=== PATIENT | female | born 1990 | race Caucasian/White ===

== ENCOUNTER 2016-05-25 14:25 | Emergency (ER) | payer BC ==
[2016-05-25 14:40] VITALS: BP 115/72
--- NOTE | 2016-05-25 15:16 | UC ---
Respiratory Complaint HPI - HPI Summary HPI Summary: The patient comes in today for: 1. Upper respiratory symptoms (Nasal congestion, rhinitis, sore throat, cough): Onset: 4 days ago. Palliative/Provocative: Nothing makes her symptoms better or worse except Advil Quality: Pressure Region: Frontal and maxillary sinuses. Severity: 5/10 this AM. Time: Constant unless taking Advil Associated symptoms: Rhinitis: Yellow. Upper tooth pain: None. Cough production: None. Temperature: None above 100.4 Previous treatment: cough syrup or Dayquil. * - History of Current Complaint Chief Complaint: UCRespiratory Stated Complaint: FEVER Time Seen by Provider: 05/25/16 15:11 Hx Obtained From: Patient Hx Last Menstrual Period: 05/18/16 ?: No - Allergies/Home Medications Allergies/Adverse Reactions: Allergies Allergy/AdvReac Type Severity Reaction Status Date / Time Penicillins Allergy Itching Verified 05/25/16 14:40 Home Medications: Home Medications Dextromethorphan-Phenylephrine [Day Time Multi-Symptom Co] 1 cap PO PRN [History] PMH/Surg Hx/FS Hx/Imm Hx Previously Healthy: Yes Endocrine History Of: Denies: Diabetes, Thyroid Disease, Hyperthyroidism, Hypothyroidism, Dyslipidemia Cardiovascular History Of: Denies: Cardiac Disorders, Hypertension, Pacemaker/ICD, Myocardial Infarction , Congestive Heart Failure, Atrial Fibrillation, Deep Vein Thrombosis, Bleeding Disorders Respiratory History Of: Denies: COPD, Asthma, Bronchitis, Pneumonia, Pulmonary Embolism GI/ History Of: Denies: Gastroesophageal Reflux, Ulcer, Gastrointestinal Bleed, Gall Bladder Disease, Kidney Stones, Diverticulitis, Renal Disease, Urosepsis Neurological History Of: Denies: TIA, CVA, Dementia, Seizures, Migraine Psychological History Of: Denies: Anxiety, Depression, Bipolar Disorder, Schizophrenia, Post Traumatic Stress Disorder Cancer History Of: Denies: Lung Cancer, Colorectal Cancer, Breast Cancer, Prostate Cancer, Cervical Cancer Other History Of: Negative For: HIV, Hepatitis B, Hepatitis C, Anticoagulant Therapy - Surgical History Surgical History: None - Family History Known Family History: Positive: Hypertension Negative: Cardiac Disease - Social History Occupation: Employed Full-time Alcohol Use: Occasionally Substance Use Type: None Smoking Status (MU): Never Smoked Tobacco Review of Systems Constitutional: Negative Skin: Negative Eyes: Negative ENT: Sore Throat, Nasal Discharge Respiratory: Cough Cardiovascular: Negative Gastrointestinal: Negative Genitourinary: Negative All Other Systems Reviewed And Are Negative: Yes Physical Exam Triage Information Reviewed: Yes Appearance: Well-Appearing, No Pain Distress, Well-Nourished Vital Signs: Initial Vital Signs Temp 99 F 05/25/16 14:33 Pulse 59 05/25/16 14:33 Resp 14 05/25/16 14:33 BP 115/72 05/25/16 14:33 Pulse Ox 99 05/25/16 14:33 Vital Signs Reviewed: Yes Eyes: Positive: Conjunctiva Clear. Negative: Discharge ENT: Positive: Hearing grossly normal. Negative: Pharyngeal erythema, Nasal congestion, Nasal drainage, TM bulging, TM dull, TM red, Tonsillar swelling, Tonsillar exudate Dental: Negative: Gross Decay/Caries @, Dental Fracture @ Neck: Positive: Supple, Nontender, No Lymphadenopathy. Negative: Nuchal Rigidity Respiratory: Positive: Chest non-tender, Lungs clear, No respiratory distress, No accessory muscle use. Negative: Crackles, Wheezing Cardiovascular: Positive: RRR, No Murmur Abdomen Description: Positive: Nontender, No Organomegaly, Soft. Negative: Distended, Guarding Musculoskeletal: Positive: Strength Intact, ROM Intact, No Edema Neurological: Positive: Alert, Muscle Tone Normal Psychological: Positive: Age Appropriate Behavior, Consolable Skin: Negative: rashes, breakdown UC Diagnostic Evaluation - Laboratory O2 Sat by Pulse Oximetry: 99 Respiratory Course/Dx - Differential Dx/Diagnosis Differential Diagnosis/HQI/PQRI: Asthma, Bronchitis, Laryngitis, Sinusitis Provider Diagnoses: Sinusitis. Bronchitis Discharge - Discharge Plan Condition: Stable Disposition: HOME Patient Education Materials: Sinusitis (ED), Acute Bronchitis (ED) Forms: *Work Release Referrals: Robles Cox MD [Primary Care Provider] - 1 Week (Please see your primary care provider in about a week to see how well you are doing. If you get worse, please be seen sooner.)
== END 2016-05-25 15:30 | disposition home or self-care (01) ==
LOC: UCCORT 14:25
DX: J32.9 Chronic sinusitis, unspecified (principal); J40 Bronchitis, not specified as acute or chronic; Z88.0 Allergy status to penicillin
CPT/HCPCS: 99212; G0463

== ENCOUNTER 2016-10-14 14:49 | Emergency (ER) | payer BC ==
[2016-10-14 15:05] VITALS: BP 107/61
--- NOTE | 2016-10-14 15:46 | UC ---
Throat Pain/Nasal Jesse HPI - HPI Summary HPI Summary: pt presents with c/o nasal congestion, cough, sore throat, sinus pressure and pain X 9 days. - History of Current Complaint Chief Complaint: UCGeneralIllness Stated Complaint: SINUSES Time Seen by Provider: 10/14/16 15:43 Hx Obtained From: Patient Hx Last Menstrual Period: 09/14/16 ?: No Onset/Duration: Gradual Onset, Lasting Days - 9 Severity: Mild Cough: Nonproductive Associated Signs & Symptoms: Positive: Sinus Discomfort Related History: Seasonal Allergies - Allergies/Home Medications Allergies/Adverse Reactions: Allergies Allergy/AdvReac Type Severity Reaction Status Date / Time Penicillins Allergy Itching Verified 10/14/16 15:00 Home Medications: Home Medications Ibuprofen TAB* [Advil TAB*] 600 mg PO Q6H PRN 10/14/16 [History Confirmed ] PMH/Surg Hx/FS Hx/Imm Hx Previously Healthy: Yes Other History Of: Negative For: HIV, Hepatitis B, Hepatitis C, Anticoagulant Therapy - Surgical History Surgical History: None - Family History Known Family History: Positive: Hypertension Negative: Cardiac Disease - Social History Alcohol Use: None Substance Use Type: None Smoking Status (MU): Never Smoked Tobacco Review of Systems Constitutional: Negative Skin: Negative Eyes: Negative ENT: Sore Throat, Other - nasal congestion, sinus pressure Respiratory: Cough Cardiovascular: Negative Gastrointestinal: Negative Genitourinary: Negative Motor: Negative Neurovascular: Negative Musculoskeletal: Negative Neurological: Negative Psychological: Negative All Other Systems Reviewed And Are Negative: Yes Physical Exam Triage Information Reviewed: Yes Appearance: Well-Appearing Vital Signs: Initial Vital Signs Temp 99.3 F 10/14/16 15:02 Pulse 51 10/14/16 15:02 Resp 16 10/14/16 15:02 BP 107/61 10/14/16 15:02 Pulse Ox 100 10/14/16 15:02 Eye Exam: Normal ENT Exam: Other ENT: Positive: Pharyngeal erythema, Nasal congestion, TM bulging - bialteral, Other: - maxillary sinus tenderness Dental Exam: Normal Neck exam: Normal Respiratory Exam: Normal Cardiovascular Exam: Normal Musculoskeletal Exam: Normal Neurological Exam: Normal Psychological Exam: Normal Skin Exam: Normal Throat Pain/Nasal Course/Dx - Differential Dx/Diagnosis Differential Diagnosis/HQI/PQRI: Sinusitis Provider Diagnoses: allergic rhinitis. sinusitis Discharge - Discharge Plan Condition: Stable Disposition: HOME Prescriptions: Azithromycin TAB* [Zithromax TAB (Z-RADHA) 250 mg #6 tabs] 2 tab PO .TODAY, THEN 1 DAILY #1 radha Fexofenadine-Pseudoephedrine [Svetlana-D 24 Hour Allergy] 1 tab PO DAILY #14 tab Patient Education Materials: Sinusitis (ED), Allergic Rhinitis (ED) Referrals: Robles Cox MD [Primary Care Provider] - If Needed
== END 2016-10-14 15:56 | disposition home or self-care (01) ==
LOC: UCCORT 14:49
DX: J30.9 Allergic rhinitis, unspecified (principal); J32.9 Chronic sinusitis, unspecified
CPT/HCPCS: 99212; G0463

== ENCOUNTER 2017-06-28 16:05 | Emergency (ER) | payer BC, OTHER ==
[2017-06-28 17:06] VITALS: BP 107/67
--- NOTE | 2017-06-28 17:47 | UC ---
FLU HPI - HPI Summary HPI Summary: Pt reports that she had flu like symptoms 1 week ago, fever, chills, malaise, and decreased appetite. Pt returned to work today, ate breakfast at 0700 and then at ~ 1100 pt reported feeling faint, and dizzy, went to the break room at work, sat and was told she fainted. Pt denies hitting head,. Denies history of seizures, admits to history of frequent fainting. Pt denies cardiac history, denies MORGAN. - History of Current Complaint Chief Complaint: UCGeneralIllness Stated Complaint: FLU SXS Time Seen by Provider: 06/28/17 17:28 Hx Obtained From: Patient Hx Last Menstrual Period: 06/24/17 ?: No Onset/Duration: Sudden Onset Severity Currently: None Severity Initially: Mild Pain Intensity: 0 Associated Signs & Symptoms: Positive: Negative Related Hx: Possible Flu/Infectious Exposure - Risk Factors Influenza Risk Factors: Negative - Allergy/Home Medications Allergies/Adverse Reactions: Allergies Allergy/AdvReac Type Severity Reaction Status Date / Time Penicillins Allergy Hives Verified 06/28/17 17:03 PMH/Surg Hx/FS Hx/Imm Hx Previously Healthy: Yes Other History Of: Negative For: HIV, Hepatitis B, Hepatitis C, Anticoagulant Therapy - Surgical History Surgical History: None - Family History Known Family History: Positive: Hypertension Negative: Cardiac Disease - Social History Occupation: Employed Full-time Lives: Alone Alcohol Use: Rare Substance Use Type: None Smoking Status (MU): Never Smoked Tobacco Have You Smoked in the Last Year: No Review of Systems Constitutional: Fatigue Skin: Negative Eyes: Negative ENT: Negative Respiratory: Negative Cardiovascular: Negative Gastrointestinal: Negative Genitourinary: Negative Motor: Negative Neurovascular: Negative Musculoskeletal: Negative Neurological: Negative Psychological: Negative Is Patient Immunocompromised?: No All Other Systems Reviewed And Are Negative: Yes Physical Exam Triage Information Reviewed: Yes Appearance: Well-Appearing, Thin, Other: - pale skin tone Vital Signs: Initial Vital Signs Temp 99.1 F 06/28/17 16:59 Pulse 57 06/28/17 16:59 Resp 16 06/28/17 16:59 BP 107/67 06/28/17 16:59 Pulse Ox 100 06/28/17 16:59 Vital Signs Reviewed: Yes Eye Exam: Normal ENT Exam: Normal Dental Exam: Normal Neck exam: Normal Respiratory Exam: Normal Cardiovascular Exam: Normal Musculoskeletal Exam: Normal Neurological Exam: Normal Psychological Exam: Normal Skin Exam: Normal Flu Course/Dx - Course Course Of Treatment: I discussed with the pt the need to eat regular meals, maintain hydration, establish care with a PCP an dmonitor for any worsening signs or symptoms. Pt verbalized understanding and agreed to plan of care. 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
== END 2017-06-28 18:06 | disposition home or self-care (01) ==
LOC: UCCORT 16:05
DX: G93.3 Postviral and related fatigue syndromes (principal); R55 Syncope and collapse
CPT/HCPCS: 99211; G0463